=== PATIENT | female | born 1995 | race Asian ===

== ENCOUNTER 2019-12-10 09:45 | Emergency (ER) | payer OTHER ==
--- NOTE | 2019-12-10 10:07 | ED ---
Abdominal Pain/Female - HPI Summary HPI Summary: Pt. is a 24 y.o female who presents to the for LLQ abd. pain after eating x 1 week. Pt. notes pain is only present after she eats. Pt. is unable to describe quality of pain. Pt. also notes loose stool with occasional bright red blood. Denies vomiting, fever, cough, SOB. Pt. notes intermittent "squeezing" in her chest. No past medical hx. Pt. denies dysuria, vaginal bleeding/discharge. Pt. denies concern for STIs and states that she has never been sexually active. Pt. has been seen by [facility] and [facility] and was sent to ed for imaging. Sxs are moderate in severity. No current modifying factors. - History of Current Complaint Chief Complaint: EDAbdPain Stated Complaint: ABD PAIN/CHEST TIGHTNESS PER PT Time Seen by Provider: 12/10/19 10:05 Hx Obtained From: Patient Pain Intensity: 3 Allergies/Adverse Reactions: Allergies Allergy/AdvReac Type Severity Reaction Status Date / Time No Known Allergies Allergy Verified 12/10/19 10:25 Home Medications: Home Medications NK [No Home Medications Reported] 12/10/19 [History Confirmed 12/10/19] PMH/Surg Hx/FS Hx/Imm Hx Previously Healthy: Yes Infectious Disease History: No Infectious Disease History: Denies: Traveled Outside the [place] in Last 30 Days - Family History Known Family History: Positive: Non-Contributory - Social History Occupation: Student Lives: Dormitory/Roommates Review of Systems Constitutional: Negative Negative: Fever Positive: Chest Pain Respiratory: Negative Negative: Cough Positive: Abdominal Pain, Diarrhea. Negative: Vomiting, Nausea Genitourinary: Negative Negative: dysuria, discharge, frequency, flank pain, hematuria Neurological/Mental Status: Negative All Other Systems Reviewed And Are Negative: Yes Physical Exam Triage Information Reviewed: Yes Vital Signs On Initial Exam: Initial Vitals Temp Pulse Resp BP Pulse Ox 99.5 F 77 16 140/79 100 12/10/19 09:48 12/10/19 09:48 12/10/19 09:48 12/10/19 09:48 12/10/19 09:48 Vital Signs Reviewed: Yes Appearance: Positive: Well-Appearing - Pt. sitting up in bed in NAD. Skin: Positive: Warm, Dry Head/Face: Positive: Normal Head/Face Inspection Eyes: Positive: Normal, EOMI Neck: Positive: Supple Respiratory/Lung Sounds: Positive: Clear to Auscultation, Breath Sounds Present Cardiovascular: Positive: Normal, RRR Abdomen Description: Positive: Other: - Abd. is soft with tenderness to LLQ, LUQ and left flank without rebound or guarding. Neurological: Positive: Normal, CN Intact II-III Psychiatric: Positive: Affect/Mood Appropriate Procedures - Sedation Patient Received Moderate/Deep Sedation with Procedure: No Diagnostics - Vital Signs Vital Signs Temp Pulse Resp BP Pulse Ox 12/10/19 09:48 99.5 F 77 16 140/79 100 - Laboratory Result Diagrams: 12/10/19 10:41 12/10/19 10:41 Lab Statement: Any lab studies that have been ordered have been reviewed, and results considered in the medical decision making process. Abdominal Pain Fem Course/Dx - Course Course Of Treatment: Pt. with abd. pain x several days. 3rd visit for pain. Currently pain free. Given ongoing pain will obtain labs and ct for further evaluation. Pt. also notes intermittent chest "squeezing.". ECG done at 0754 shows a sinus bradycardia of 58bpm, normal axis, no ST elevation or depression. CT abd./pelvis per radiology: IMPRESSION: #. No abdominal pelvic pathologic process evident. #. Normal appendix documented. #. Noted 0.35 cm subpleural nodule at the lateral basal segment of the LEFT lower lobe is. very low suspicion given small size and location of the nodule as well as patient age. In. absence of risk factors for malignancy no follow-up of this finding is suggested. Labs unremarkable. On re-exam pt. feeling well. Results discussed. Discussed pulmonary nodule. Unclear of etiology. Recommend pt. f.u with [facility] on thursday. Will return to er if sxs change or worsen. Pt. understands and agrees with plan. - Diagnoses Differential Diagnosis: Positive: Appendicitis, Constipation, Diverticulitis, Ectopic , , Renal Colic, Urinary Tract Infection Provider Diagnoses: Abdominal pain, Pulmonary nodule Discharge ED - Sign-Out/Discharge Documenting (check all that apply): Patient Departure - Discharge Plan Condition: Good Disposition: HOME Patient Education Materials: Acute Abdominal Pain (ED), Pulmonary Nodules (ED) Referrals: [facility] - Justin DAVIDSON [Primary Care Provider] - Additional Instructions: Schedule a follow up appointment with [facility] on Thursday Can try tylenol or motrin for pain as directed Return to ER for fever, increased pain, vomiting or if concerned - Billing Disposition and Condition Condition: GOOD Disposition: Home - Attestation Statements Provider Attestation: I was available for consult. This patient was seen by the [facility]. The patient was not presented to, seen by, or examined by me. Marcos Serrano MD
[2019-12-10 10:55] LABS: ABS Basophils 0.1 10^3/ul (0-0.2); ABS Lymphocytes 0.8 10^3/ul (1.0-4.8); ABS Monocytes 0.2 10^3/ul (0-0.8); ABS Neutrophils 1.7 10^3/ul (1.5-7.7); Eosinophil % 0.4 %; Hematocrit 40 % (35-47); Hemoglobin 13.2 g/dL (12.0-16.0); Lymphocyte % 27.6 %; Mean Corpuscular HGB Conc 33 g/dL (31-36); Mean Corpuscular Hemoglobin 29 pg (27-31); Mean Corpuscular Volume 87 fL (80-97); Mean Platelet Volume 10.2 fL (7.4-10.4); Nucleated Red Blood Cells % 0.2; Platelet Count 150 10^3/uL (150-450); Red Blood Count 4.55 10^6 /uL (3.70-4.87); Red Cell Distribution Width 12 % (10-15); White Blood Count 2.8 10^3/uL (3.5-10.8)
[2019-12-10 11:12] LABS: ALT 13 U/L (7-52); AST 18 U/L (13-39); Albumin 4.2 g/dL (3.2-5.2); Albumin/Globulin Ratio 1.5 (1-3); Alkaline Phosphatase 41 U/L (34-104); Anion Gap 10 mmol/L (2-11); BUN/Creatinine Ratio 12.9 (8-20); Blood Urea Nitrogen 11 mg/dL (6-24); C Reactive Protein < 1.00 mg/L (<8.01); CO2 Carbon Dioxide 25 mmol/L (22-32); Calcium 9.2 mg/dL (8.6-10.3); Chloride 102 mmol/L (101-111); EGFR African American 100.3 (>60); EGFR Non-African American 82.9 (>60); Globulin 2.8 g/dL (2-4); Glucose 89 mg/dL (70-100); Potassium 3.7 mmol/L (3.5-5.0); Sodium 137 mmol/L (135-145)
[2019-12-10 11:18] LABS: HCG Pregnancy < 0.60 mIU/mL
[2019-12-10 12:08] LABS: Urine Appearance Clear; Urine Bilirubin Negative (Negative); Urine Blood Negative (Negative); Urine Color Straw; Urine Glucose Negative (Negative); Urine Ketones 1+ (Negative); Urine Nitrite Negative (Negative); Urine Protein Negative (Negative); Urine Specific Gravity 1.003 (1.010-1.030); Urine Urobilinogen Negative (Negative)
[2019-12-10] MEDS ORDERED: Iohexol 300* (CONTRAST) 10 ML SDV IV ONE (14:11)
[2019-12-10 16:17] VITALS: BP 109/67
== END 2019-12-10 16:15 | disposition home or self-care (01) ==
LOC: ED 09:45
DX: R10.32 Left lower quadrant pain (principal); R91.1 Solitary pulmonary nodule; R19.7 Diarrhea, unspecified; R07.9 Chest pain, unspecified
CPT/HCPCS: 36415; 74177; 80053; 81003; 83690; 84702; 85025; 86140; 93005; 99284; Q9967